=== PATIENT | female | born 1945 | race Caucasian/White ===

== ENCOUNTER 2017-01-24 18:23 | Outpatient (CLI) | payer MEDICARE, OTHER | END 2017-01-24 18:24 | disposition critical access hospital (66) | LOC: EMS 18:23 | PROVIDERS: ATTEND Surgery | DX: S00.81XA Abrasion of other part of head, initial encounter (principal); S40.812A Abrasion of left upper arm, initial encounter; S40.811A Abrasion of right upper arm, initial encounter; S80.812A Abrasion, left lower leg, initial encounter; S80.811A Abrasion, right lower leg, initial encounter; W15.XXXA Fall from cliff, initial encounter; Y93.89 Activity, other specified | CPT/HCPCS: A0425; A0429 ==

== ENCOUNTER 2017-01-24 19:04 | Emergency (ER) | payer MEDICARE, OTHER ==
[2017-01-24 19:07] VITALS: BP 150/96
[2017-01-24] MEDS ORDERED: TETANUS/DIPHTHERIA/PERTUSSIS 0.5 ML SYRINGE IM ONE ×2 (19:13→19:18)
[2017-01-24] MEDS ORDERED: ACETAMINOPHEN 325 MG TABLET PO STA (19:15)
--- NOTE | 2017-01-24 19:17 | ED Physician Documentation ---
History of Present Illness - Stated complaint Stated Complaint: FALL - Chief complaint Chief Complaint: General - History obtained from History obtained from: Patient, EMS - History of Present Illness Timing: Today Pain level max: 2 Pain level now: 1 Improved by: nothing Worsened by: nothing - Additonal information Additional information: Patient is a 71-year-old female who presents to the emergency department stating that she fell down a embankment today into [employer]. Currently just has general body aches. Does not know her last tetanus shot. Climbed up the embankment and was ambulatory on scene. Visiting from [place] Review of Systems Constitutional: denies: Fever, Chills Respiratory: denies: Cough GI: denies: Vomiting, Diarrhea Skin: denies: Rash Musculoskeletal: denies: Neck pain, Back pain Neurologic: denies: Focal weakness, Numbness, Headache, Head injury, LOC PD PAST MEDICAL HISTORY - Past Medical History Past Medical History: No - Past Surgical History Past Surgical History: No - Present Medications Home Medications: Ambulatory Orders Medication Instructions Recorded Confirmed Bimatoprost [Lumigan] 2 drops OP DAILY 01/24/17 01/24/17 - Allergies Allergies/Adverse Reactions: Allergies Allergy/AdvReac Type Severity Reaction Status Date / Time Sulfa (Sulfonamide Allergy Unknown Verified 01/24/17 19:08 Antibiotics) - Social History Does the pt smoke?: No Smoking Status: Never smoker Does the pt drink ETOH?: No Does the pt have substance abuse?: No - Immunizations Immunizations: TDAP >10years/unknown PD ED PE NORMAL - Vitals Vital signs reviewed: Yes - General General: Alert and oriented X 3, No acute distress, Well developed/nourished - HEENT HEENT: Atraumatic, PERRL, Ears normal, Moist mucous membranes - Neck Neck: Supple, no meningeal sign - Cardiac Cardiac: RRR, Strong equal pulses - Respiratory Respiratory: No respiratory distress, Clear bilaterally - Abdomen Abdomen: Soft, Non tender, Non distended - Back Back: No spinal TTP - Derm Derm: Warm and dry - Extremities Extremities: No tenderness to palpate, Other (Multiple abrasions over the entire body.) - Neuro Neuro: Alert and oriented X 3, live source operator 2-12 intact, No motor deficit, No sensory deficit, Normal speech - Psych Psych: Normal mood, Normal affect Results - Vitals Vitals: Vital Signs - 24 hr 01/24/17 19:05 Temperature 37.0 C Heart Rate 82 Respiratory 16 Rate Blood Pressure 150/96 H O2 Saturation 99 Oxygen O2 Source Room air PD MEDICAL DECISION MAKING - ED course Complexity details: considered differential, d/w patient, d/w family ED course: Patient is a 71-year-old female who fell off a bisi and down into the [employer] [place]. No injuries other than multiple abrasions. Tetanus shot given. Wounds were cleansed. Warnings of infection given at bedside. Ambulating without difficulty. Patient counseled regarding signs and symptoms for which I believe and urgent re-evaluation would be necessary. Patient with good understanding of and agreement to plan and is comfortable going home at this time This document was made in part using voice recognition software. While efforts are made to proofread this document, sound alike and grammatical errors may occur. Departure - Departure Disposition: 01 Home, Self Care Clinical Impression: Abrasions of multiple sites Condition: Good Instructions: ED Abrasion Follow-Up: your,doctor as needed. [Other] Comments: Return if you worsen. Keep your wounds clean. Discharge Date/Time: 01/24/17 19:44
[2017-01-24] MEDS ORDERED: ACETAMINOPHEN 325 MG TABLET PO ONE (19:18)
== END 2017-01-24 19:44 | disposition home or self-care (01) ==
LOC: ED 19:04
DX: T14.8 Other injury of unspecified body region (principal); W17.81XA Fall down embankment (hill), initial encounter; W45.8XXA Other foreign body or object entering through skin, initial encounter; Y93.89 Activity, other specified; Z23 Encounter for immunization
CPT/HCPCS: 90471; 90715; 99282; 99283; A9270